=== PATIENT | male | born 1955 | race Caucasian/White ===

== ENCOUNTER 2023-12-10 13:49 | Inpatient (IN) ==
[2023-12-10 14:22] LABS: ABS Lymphocytes 0.7 10^3/uL (1.0-4.8); ABS Monocytes 0.4 10^3/uL (0.0-1.1); ABS Neutrophils 6.1 10^3/uL (1.5-7.6); ABS Nucleated RBC 0.01 10^3/ul; Eosinophil % 0.3 %; Hematocrit 42.1 % (38-53); Hemoglobin 14.8 g/dL (13.2-16.3); Lymphocyte % 9.2 %; Mean Corpuscular Hemoglobin 34.4 pg (27-33); Mean Corpuscular Hgb Conc 35.1 g/dL (31-36); Mean Corpuscular Volume 98.1 fL (80-97); Mean Platelet Volume 8.2 fL (7.5-11.2); Nucleated Red Blood Cells % 0.1 %/100WBC (0.0-0.8); Platelet Count 231 10^3/uL (150-450); Red Blood Count 4.29 10^6/uL (4.06-5.63); Red Cell Distribution Width 13.1 % (12-17); White Blood Count 7.2 10^3/uL (3.6-10.2)
[2023-12-10 14:29] LABS: INR 1.04 (0.83-1.13)
[2023-12-10 14:57] LABS: Albumin 4.3 g/dL (3.2-5.2); Albumin/Globulin Ratio 2.2 (1-3); Calcium 9.4 mg/dL (8.6-10.3); Creatinine, Serum 0.83 mg/dL (0.67-1.17); Potassium 4.1 mmol/L (3.5-5.0); Total Bilirubin 0.9 mg/dL (0.2-1.0); Total Protein 6.3 g/dL (6.4-8.9); eGFR CKD-EPI 95.3 (>60)
[2023-12-10 16:06] LABS: High Sensitivity Troponin 1 Hr 11033 pg/mL (<20)
[2023-12-10] MEDS: Heparin 5000 UNITS/ML 1 mL VIAL IV PRN (16:27)
[2023-12-10] MEDS: Heparin DRIP 25,000 UNITS BAG 25,000 UNITS/250 ML BAG IV SCH (16:29)
[2023-12-10 16:36] LABS: Activated Partial Thrombo Time 29.9 seconds (26.0-38.0)
[2023-12-10 19:12] LABS: HDL Cholesterol 70.4 mg/dL
[2023-12-10 22:23] LABS: ABS Basophils 0.1 10^3/uL (0.0-0.1); ABS Eosinophils 0.1 10^3/uL (0.0-0.5); ABS Lymphocytes 1.6 10^3/uL (1.0-4.8); ABS Monocytes 0.5 10^3/uL (0.0-1.1); ABS Neutrophils 4.7 10^3/uL (1.5-7.6); Eosinophil % 1.4 %; Hemoglobin 15.7 g/dL (13.2-16.3); Lymphocyte % 23.1 %; Mean Corpuscular Hemoglobin 34.3 pg (27-33); Mean Corpuscular Hgb Conc 34.8 g/dL (31-36); Mean Corpuscular Volume 98.6 fL (80-97); Mean Platelet Volume 8.3 fL (7.5-11.2); Nucleated Red Blood Cells % 0.1 %/100WBC (0.0-0.8); Platelet Count 244 10^3/uL (150-450); Red Blood Count 4.56 10^6/uL (4.06-5.63); Red Cell Distribution Width 12.9 % (12-17); White Blood Count 7.1 10^3/uL (3.6-10.2)
[2023-12-11] MEDS: Magnesium Sulfate 2 gm BAG 2 GM/50 ML BAG IVPB ONE (01:01)
[2023-12-11 01:54] LABS: High Sensitivity Troponin 3 Hr > 24000 pg/mL (<20)
[2023-12-11 05:00] LABS: ABS Basophils 0.1 10^3/uL (0.0-0.1); ABS Eosinophils 0.2 10^3/uL (0.0-0.5); ABS Lymphocytes 1.6 10^3/uL (1.0-4.8); ABS Monocytes 0.5 10^3/uL (0.0-1.1); ABS Neutrophils 3.3 10^3/uL (1.5-7.6); Eosinophil % 2.9 %; Hematocrit 40.9 % (38-53); Hemoglobin 14.4 g/dL (13.2-16.3); Lymphocyte % 28.8 %; Mean Corpuscular Hemoglobin 34.4 pg (27-33); Mean Corpuscular Hgb Conc 35.2 g/dL (31-36); Platelet Count 213 10^3/uL (150-450); Red Blood Count 4.17 10^6/uL (4.06-5.63); Red Cell Distribution Width 13.3 % (12-17); White Blood Count 5.7 10^3/uL (3.6-10.2)
[2023-12-11 05:23] LABS: Calcium 8.9 mg/dL (8.6-10.3); Creatinine, Serum 0.87 mg/dL (0.67-1.17); Magnesium 2.4 mg/dL (1.9-2.7); Phosphorus 3.7 mg/dL (2.5-5.0)
[2023-12-11] MEDS: NS 0.9% 1000 ml BAG 1,000 ML IV SCH (05:43)
[2023-12-11] MEDS: Aspirin EC 81 mg TAB.EC (enteric coated) PO SCH (07:14)
[2023-12-11] MEDS ORDERED: Sulfur Hexaflouride MICROSPHR 25 MG VIAL ONE (07:37)
[2023-12-11] MEDS ORDERED: nitroGLYCERIN DRIP 25,000 MCG/250 ML BTL ONE (07:42)
[2023-12-11] MEDS ORDERED: fentaNYL 100 mcg/2 ml 50 MCG/ML VIAL ONE ×2 (07:42→09:41)
[2023-12-11] MEDS ORDERED: Heparin 1,000 UNIT/ML 10 ml (10,000 UNITS) CATHLAB/DIALYSIS ONE (07:42)
[2023-12-11] MEDS ORDERED: Midazolam 5 mg/5 ml VIAL 1 mg/ml 5 ml VIAL (5 mg) ONE (07:42)
[2023-12-11] MEDS ORDERED: Heparin 2 UNITS/ML 1000 mls 1,000 ML IV ONE ×2 (07:42→08:56)
[2023-12-11] MEDS ORDERED: VERAPAMIL 2.5 MG/ML 2 ML VIAL ** 5 mg/2 ml ONE (07:42)
[2023-12-11] MEDS ORDERED: Iohexol 350 (CONTRAST) 200 ML MDV IV ONE (07:43)
[2023-12-11] MEDS ORDERED: Lidocaine 1% MPF 5 ML VIAL ONE (07:45)
[2023-12-11] MEDS ORDERED: niCARdipine 0.1MG/ML IVPREMIX 20 MG/200 ML BAG IV ONE (07:45)
[2023-12-11] MEDS: Sulfur Hexaflouride MICROSPHR 25 MG VIAL IV ONE (08:05)
[2023-12-11] MEDS ORDERED: Flumazenil 0.5 mg/5 ml 0.1 MG/ML 5 ml VIAL IV PRN (08:30)
[2023-12-11] MEDS ORDERED: Naloxone 0.4 mg VIAL 0.4 mg/ml 1 ml VIAL IV PUSH PRN (08:30)
[2023-12-11] MEDS: fentaNYL 100 mcg/2 ml 50 MCG/ML VIAL IV SLOW PU ONE (08:49)
[2023-12-11] MEDS: Midazolam 10 mg/10 ml VIAL 1 mg/ml 10 ml VIAL (10 mg) IV SLOW PU ONE (08:50)
[2023-12-11] MEDS ORDERED: Norepinephrine IV 1 MG/ML 4 ML VIAL ONE (09:22)
[2023-12-11 17:32] VITALS: BP 101/75
== END 2023-12-11 23:49 | disposition short-term general hospital (02) | DRG 281 ==
LOC: ED 13:49 → EDHOLD 13:49 → MEDTELE 17:34
PROVIDERS: ADMIT Student in an Organized Health Care Education/Training Program; ATTEND Student in an Organized Health Care Education/Training Program